=== PATIENT | male | born 1970 | race African-American/Black ===

== ENCOUNTER 2016-10-14 11:02 | Emergency (ER) | payer SELFPAY ==
[2016-10-14] MEDS ORDERED: CEPHALEXIN 500 MG CAPSULE PO ONE (13:05)
[2016-10-14] MEDS ORDERED: SULFAMETHOXAZOLE/TRIMETHOPRIM 800-160 MG TABLET PO ONE (13:05)
[2016-10-14] MEDS ORDERED: HYDROCODONE/ACETAMINOPHEN 5-325 MG 6 TAB/DSPK PO PRN (13:06)
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
[2016-10-14 14:14] VITALS: BP 142/103
== END 2016-10-14 13:40 | disposition home or self-care (01) ==
LOC: ER 11:02
PROC: 0H96XZZ Drainage of Back Skin, External Approach (ICD-10-PCS; principal; 2016-10-14)
DX: L02.212 Cutaneous abscess of back [any part, except buttock and flank] (principal); F17.210 Nicotine dependence, cigarettes, uncomplicated
CPT/HCPCS: 87070; 87075; 87077; 87186; 87205; 99283

== ENCOUNTER 2016-10-16 17:04 | Emergency (ER) | payer SELFPAY ==
[2016-10-16 17:19] VITALS: BP 151/97
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
== END 2016-10-16 19:24 | disposition home or self-care (01) ==
LOC: ER 17:04
DX: Z48.01 Encounter for change or removal of surgical wound dressing (principal); L02.212 Cutaneous abscess of back [any part, except buttock and flank]; I10 Essential (primary) hypertension
CPT/HCPCS: 99282

== ENCOUNTER 2016-10-18 19:41 | Emergency (ER) | payer SELFPAY | END 2016-10-18 20:20 | disposition left against medical advice (07) | LOC: ER 19:41 | DX: Z53.21 Procedure and treatment not carried out due to patient leaving prior to being seen by health care provider (principal) ==